=== PATIENT | female | born 1980 | race Caucasian/White ===

== ENCOUNTER 2020-06-07 15:37 | Inpatient (IN) | payer OTHER ==
--- NOTE | 2020-06-07 17:25 | HP ---
CIWA Score - Admission Criteria OASAS Guidelines: Admission for Medically Managed Detox: Requires at least one of the followin. CIWA greater than 12 2. Seizures within the past 24 hours 3. Delirium tremens within the past 24 hours 4. Hallucinations within the past 24 hours 5. Acute intervention needed for co occurring medical disorder 6. Acute intervention needed for co occurring psychiatric disorder 7. Severe withdrawal that cannot be handled at a lower level of care (continued vomiting, continued diarrhea, abnormal vital signs) requiring intravenous medication and/or fluids 8. Admitting History and Physical - Admission History of Present Illness: Patient is a 40 y.o. F PMHx HTN, diabetes. Presenting to [facility] for rehab admission. Patient was examined and in no acute distress. History Source: Patient Limitations to Obtaining History: No Limitations - Past Medical History TIMBER HEWER: No: Seizure Cardiovascular: Yes: HTN. No: Hyperlipdemia Pulmonary: Yes: Pneumonia Gastrointestinal: No: GERD, GI Bleed Hepatobiliary: No: Hepatitis A, Hepatitis B, Hepatitis C Infectious Disease: No: HIV, STD's, Tuberculosis - Past Surgical History Additional Past Surgical History: R foot 1st digit - Smoking History Smoking history: Current every day smoker Aproximately how many cigarettes per day: 10 - Alcohol/Substance Use Hx Alcohol Use: No - Social History Usual Living Arrangement: Yes: Alone ADL: Independent History of Recent Travel: No Admission [facility] Allergies/Adverse Reactions: Allergies Allergy/AdvReac Type Severity Reaction Status Date / Time No Known Drug Allergies Allergy Verified 05/10/20 16:34 Seafood Allergy Intermediate Uncoded 05/10/20 16:26 Exam Limitations: No Limitations - Ebola screening Have you traveled outside of the country in the last 21 days: No Have you had contact with anyone from an Ebola affected area: No Have you been sick,other than usual withdrawal symptoms: No Do you have a fever: No - Review of Systems Constitutional: No Symptoms Reported EENT: denies: Blurred Vision, Double Vision Respiratory: denies: Cough, Shortness of Breath Cardiac: denies: Chest Pain, Lightheadedness GI: denies: Constipated, Diarrhea, Nausea, Vomiting : denies: Burning, Dysuria Musculoskeletal: denies: Muscle Pain, Muscle Weakness Neuro: denies: Headache, Dizziness Hematology: denies: Easy Bleeding Psychiatric: reports: No Sypmtoms Reported, Judgement Intact, Mood/Affect Appropiate, Orientated x3 Patient History - Patient Medical History Hx Asthma: Yes Hx Chronic Obstructive Pulmonary Disease (COPD): No Hx Cardiac Disorders: No Hx Hypertension: Yes Hx Seizures: Yes Hx Diabetes: Yes Hx Gastrointestinal Disorders: No Hx Genitourinary Disorders: No Hx Sexually Transmitted Disorders: No Hx Renal Disease (ESRD): No Hx Depression: Yes Hx Suicide Attempt: Yes (DRUG OVERDOSE IN 2019) Hx Schizophrenia: No - Patient Surgical History Past Surgical History: Yes Other Surgical History: SX OF RIGHT FOOT IN 2019 Anesthesia Reaction: No - PPD History Date: 05/12/20 - Smoking Cessation Smoking history: Current every day smoker Aproximately how many cigarettes per day: 10 Hx Chewing Tobacco Use: No Initiated information on smoking cessation: No Admission Physical Exam [facility] - Physical General Appearance: Yes: Within Normal Limits, No Apparent Distress, Nourished, Appropriately Dressed Respiratory: Yes: Within Normal Limits, Lungs Clear, Normal Breath Sounds, No Respiratory Distress, No Accessory Muscle Use Cardiology: Yes: Within Normal Limits, Regular Rhythm, Regular Rate Abdominal: Yes: Within Normal Limits, Normal Bowel Sounds, Non Tender, Flat, Soft Back: Yes: Within Normal Limits, Normal Inspection. No: CVA Tenderness Musculoskeletal: Yes: Within Normal Limits, full range of Motion, Gait Steady. No: Muscle Pain Extremities: Yes: Within Normal Limits, Normal Inspection, Non-Tender Neurological: Yes: Within Normal Limits, Fully Oriented, Alert, Normal Mood/Affect, Normal Response Integumentary: Yes: Within Normal Limits, Dry, Warm - Diagnostic (1) Diabetic foot ulcer Current Visit: No Status: Acute (2) Opioid use disorder, severe, on maintenance therapy Current Visit: No Status: Acute (3) Sedative hypnotic or anxiolytic dependence Current Visit: No Status: Acute (4) Asthma Current Visit: No Status: Chronic (5) Cocaine dependence Current Visit: No Status: Chronic (6) Diabetes type 2, uncontrolled Current Visit: No Status: Chronic (7) Diabetic polyneuropathy Current Visit: No Status: Chronic (8) HTN (hypertension) Current Visit: No Status: Chronic (9) Nicotine dependence Current Visit: No Status: Chronic Cleared for Admission S - Detox or Rehab [facility] Level of Care: Medically Managed Detox Regimen/Protocol: Not Applicable Claeared for Rehab Admission: Yes Breathalyzer - Breathalyzer Breathalyzer: 0 Vital Signs - Vital Signs Vital signs refused: No Temperature: 97.7 F Pulse Rate: 93 Respiratory Rate: 18 Blood Pressure: 110/77 - Height Height: 1.57 m - Weight Weight: 71.214 kg - BMI Body Mass Index (BMI): 28.7 Urine Drug Screen - Test Device Lot number: [id number] Expiration date: 01/04/22 - Control Is test valid?: Yes - Results Drug screen NEGATIVE: No Urine drug screen results: MTD-Methadone Inpatient Rehab Admission - Rehab Decision to Admit Inpatient rehab admission?: Yes - Initial Determination Are CD services needed?: No Free of communicable disease: Yes Not in need of hospitalization: Yes - Rehab Admission Criteria Previous failed treatment: Yes Poor recovery environment: Yes Comorbidities: Yes Lacks judgement: No Patient is meeting Inpatient Rehab admission criteria:: Yes
[2020-06-07 17:28] VITALS: BMI 28.7
[2020-06-07] MEDS ORDERED: LOPERAMIDE HCL 2 MG CAPSULE PO PRN (17:28)
[2020-06-07] MEDS ORDERED: MAG HYDROX/AL HYDROX/SIMETH 30 ML UNIT-DOSE CUP PO PRN (17:28)
[2020-06-07] MEDS ORDERED: P-EPHED 60MG/TRIPROLIDI 2.5MG TABLET PO PRN (17:28)
[2020-06-07] MEDS ORDERED: MAGNESIUM CITRATE 300 ML BOTTLE PO PRN (17:28)
[2020-06-07] MEDS ORDERED: MAGNESIUM HYDROX 2400MG/30ML ORAL SUSPENSION 30 ML CUP PO PRN (17:28)
[2020-06-07] MEDS ORDERED: NICOTINE POLACRILEX 2 MG GUM BC PRN (17:28)
[2020-06-07] MEDS ORDERED: ACETAMINOPHEN 325 MG TABLET (FP) PO PRN (17:28)
[2020-06-07] MEDS ORDERED: guaiFENesin 200 MG/10 ML 10 ML UNIT-DOSE CUPS PO PRN (17:28)
[2020-06-07] MEDS ORDERED: IBUPROFEN 400 MG TABLET (FP) PO PRN (17:28)
[2020-06-07] MEDS: hydrOXYzine PAMOATE 25 MG CAPSULE (FP) PO SCH ×2 (19:57→21:25)
[2020-06-07] MEDS ORDERED: THIAMINE HCL 100 MG TABLET (FP) PO SCH (22:00)
[2020-06-07] MEDS ORDERED: MELATONIN 5 MG TABLETS PO SCH (22:00)
[2020-06-07] MEDS ORDERED: ALBUTEROL SO4 HFA INHALER IH PRN (23:44)
[2020-06-08] MEDS: hydrOXYzine PAMOATE 25 MG CAPSULE (FP) PO SCH ×2 (06:43→10:14)
[2020-06-08 07:00] VITALS: TEMP 97.8
[2020-06-08] MEDS ORDERED: NAPROXEN 500 MG TABLET PO PRN (08:36)
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
[2020-06-08] MEDS ORDERED: GABAPENTIN 300 MG CAPSULE PO SCH (10:00)
[2020-06-08] MEDS ORDERED: LISINOPRIL 5 MG TABLET (FP) PO SCH (10:00)
[2020-06-08] MEDS ORDERED: PRENATAL VITAMINS W/ FOLIC ACID TABLET (FP) PO SCH (10:00)
[2020-06-08] MEDS ORDERED: ASPIRIN 81 MG CHEWABLE TABLETS PO SCH (10:00)
[2020-06-08] MEDS ORDERED: busPIRone HCL 10 MG TABLET (FP) PO SCH (10:00)
[2020-06-08] MEDS ORDERED: COLLAGENASE CLOSTRIDIUM HIST. 30 GRAMS TUBE TP SCH (10:00)
[2020-06-08] MEDS ORDERED: MONTELUKAST NA 10 MG TABLET PO SCH (10:00)
[2020-06-08] MEDS ORDERED: NICOTINE 7 MG/24 HOURS TOPICAL PATCH TD SCH (10:00)
[2020-06-08] MEDS ORDERED: METHADONE HCL 40 MG DISPERSABLE TABLET PO ONE (11:00)
[2020-06-08 11:04] VITALS: BP 124/83; PULSE 82
--- NOTE | 2020-06-08 12:00 | DS ---
[facility] Rehab Discharge Summary - [facility] Rehab Discharge Summary Admission Date: 06/07/20 Discharge Date: 06/08/20 - History Present History: Cannabis dependence, Cocaine dependence, MMTP, Opioid dependence, Sedative dependence Pertinent Past History: Patient is a 40 y.o. F PMHx HTN, diabetes. Recently discharged from [facility] after surgery on right foot and transferred directly to [facility] for substance use rehab. The patient has been distressed since her admission, threatening the staff that she will luis f them for various perceived offenses. She has been angry about her medications from [facility] requiring review by the staff and the pharmacy. Her medical chart from [facility] was reviewed by the medical PRODUCTION WELDER and the cooker loader and all necessary medications were ordered. This PRODUCTION WELDER was informed that she had bags of medications that were placed in security upon her arrival. I requested that the bags of medication be brought to the unit so that the medications could be reviewed, verified, and sent to pharmacy. In addition, she requires dressing changes to the wound on her right leg and foot. She was informed that the RN and the PRODUCTION WELDER would inspect the surgical site and the leg, the RN would change the dressing as appropriate, and the patient would be taught how to do the dressing changes so that upon discharge from rehab, she would be able to continue the dressing changes as needed. - Discharge Physical Exam Vital Signs: Vital Signs Temperature 97.8 F 06/08/20 06:41 Pulse Rate 82 06/08/20 10:00 Respiratory Rate 20 06/08/20 06:41 Blood Pressure 124/83 06/08/20 10:00 O2 Sat by Pulse Oximetry (%) 98 06/08/20 06:41 Pertinent Admission Physical Exam Findings: General Appearance: No Apparent Distress, anxious HEENTM: Normocephalic, PERRLA, EOMI Respiratory:No Respiratory Distress, No Accessory Muscle Use Musculoskeletal: full range of Motion, Gait Steady. Extremities: right foot with dressing and boot to protect foot. Neurological: No cognitive deficits Integumentary: unable to assess the surgical site and leg because the dressing was intact and patient was in security planning on leaving. - Treatment Discharge Condition: Discharge condition good (Medically stable for discharge.), Outpatient referral accepted (Patient states she will return to her PCP. She was encouraged to stay at [facility] and complete rehab.) Hospital Course: The patient has been distressed since her admission, threatening the staff that she will luis f them for various perceived offenses. She has been angry about her medications from [facility] requiring review by the staff and the pharmacy. Her medical chart from [facility] was reviewed by the medical PRODUCTION WELDER and the cooker loader and all necessary medications were ordered. This PRODUCTION WELDER was informed that she had bags of medications that were placed in security upon her arrival. I requested that the bags of medication be brought to the unit so that the medications could be reviewed, verified, sent to pharmacy, and all necessary medications ordered for administration while in rehab. In addition, she required dressing changes to the wound on her right leg and surgical sites on her foot. She was informed that the RN and the PRODUCTION WELDER would inspect the surgical site and the leg, the RN would change the dressing as appropriate, and the patient would be taught how to do the dressing changes so that upon discharge from rehab, she would be able to continue the dressing changes as needed. Patient was reassured that she would receive pain medication as needed. - Medication Discharge Medications: Ambulatory Orders Buspirone HCl [Buspar -] 10 mg PO DAILY 05/10/20 Gabapentin [Neurontin] 100 mg PO BID 05/10/20 Albuterol Sulfate Inhaler - [Ventolin HFA Inhaler -] 1 puff IH BID PRN 06/07/20 Aspirin [ASA -] 81 mg PO DAILY 06/07/20 Atorvastatin Calcium [Lipitor] 10 mg PO HS 06/07/20 Insulin Glargine,Hum.rec.anlog [Basaglar Kwikpen U-100] 16 units SCJ HS 06/07/20 Insulin Lispro [Admelog Solostar] 100 unit SQ TID 06/07/20 Lisinopril [Zestril] 2.5 mg PO DAILY 06/07/20 Montelukast Sodium 10 mg PO DAILY 06/07/20 Naproxen [Naprosyn] 500 mg PO BID PRN 06/07/20 Quetiapine Fumarate [Seroquel -] 300 mg PO HS 06/07/20 Santyl - 3.1 cm TP BID 06/07/20 Sertraline HCl 50 mg PO DAILY 06/07/20 clonazePAM [Clonazepam] 1 mg PO HS 06/07/20 Collagenase Clostridium Hist. [Santyl] 1 applic TP DAILY 14 Days #1 applic 06/08/20 - Medication-Assisted Treatment (MAT) Medication-Assisted Treatment (MAT): Yes MAT Follow-up Referral: MMTP - Discharge Instructions Diet, activity, other medical instructions: Diet: as tolerated Activity: as tolerated Other medical instructions: Please follow up with your PCP for post operative care, please attend NA meetings. - Diagnosis (1) Diabetic foot ulcer Current Visit: No Status: Acute Qualifiers: Diabetic foot ulcer location: unspecified part of foot (2) Opioid use disorder, severe, on maintenance therapy Current Visit: No Status: Acute (3) Benzodiazepine dependence Current Visit: No Status: Chronic (4) Cannabis use disorder, mild, abuse Current Visit: No Status: Chronic (5) Cocaine dependence Current Visit: No Status: Chronic - Follow-up Referral Minutes to complete discharge: 25 - AMA Did Patient Leave Against Medical Advice: Yes Additional Comments: Patient was advised that it was in the best interest of her health that she remain at [facility]; the reasons were outlined to her, the support we planned on providing for her was described and discussed in detail. The adverse effects of leaving prior to completion of rehab were outlined for the patient and she indicated her understanding of the consequences. Patient was seen in the security office, where she was getting her belongings and encouraged to stay at [facility].
[2020-06-08] MEDS ORDERED: QUEtiapine FUMARATE 300 MG TABLET PO SCH (22:00)
[2020-06-08] MEDS ORDERED: ATORVASTATIN CA 10 MG TABLET (FP) PO SCH (22:00)
[2020-06-09] MEDS ORDERED: METHADONE HCL 40 MG DISPERSABLE TABLET PO SCH (06:00)
== END 2020-06-08 12:03 | disposition left against medical advice (07) | DRG 770 ==
LOC: YASAS 15:37 → Y3E 18:06
PROVIDERS: ADMIT Allergy & Immunology; ATTEND Allergy & Immunology
PROC: HZ42ZZZ Group Counseling for Substance Abuse Treatment, Cognitive-Behavioral (ICD-10-PCS; principal; 2020-06-07)
DX: F10.20 Alcohol dependence, uncomplicated (principal); F11.20 Opioid dependence, uncomplicated; F13.20 Sedative, hypnotic or anxiolytic dependence, uncomplicated; F14.20 Cocaine dependence, uncomplicated; F12.20 Cannabis dependence, uncomplicated; F19.282 Other psychoactive substance dependence with psychoactive substance-induced sleep disorder; F31.9 Bipolar disorder, unspecified; E11.42 Type 2 diabetes mellitus with diabetic polyneuropathy; E11.621 Type 2 diabetes mellitus with foot ulcer; Z79.4 Long term (current) use of insulin; I10 Essential (primary) hypertension; E78.5 Hyperlipidemia, unspecified; Z91.5 Personal history of self-harm; Z56.0 Unemployment, unspecified; Z91.013 Allergy to seafood
CPT/HCPCS: 81025; 82962